=== PATIENT | male | born 1960 | race Two or more races ===

== ENCOUNTER 2023-05-10 13:55 | Emergency (ER) | payer OTHER ==
[~2023-05-10] VITALS: Ht 190.5 cm; Wt 129.5 kg
[2023-05-10 16:22] VITALS: BP 168/83; PULSE 83; RESP 16; TEMP 98.4; O2SAT 96
[2023-05-10] MEDS ORDERED: TETRACAINE HCL 0.5% OPTH(EYE) SOLN 4ML LEFTEYE ONE (16:30)
[2023-05-10] MEDS ORDERED: FLUORESCEIN SOD OPTH TEST STRIP LEFTEYE ONE (16:30)
[2023-05-10] MEDS ORDERED: ERY05OO OP (17:13)
== END 2023-05-10 17:45 | disposition home or self-care (01) ==
LOC: ER 13:55
DX: S05.01XA Injury of conjunctiva and corneal abrasion without foreign body, right eye, initial encounter (principal); W22.8XXA Striking against or struck by other objects, initial encounter; Y93.89 Activity, other specified; Y92.89 Other specified places as the place of occurrence of the external cause; Y99.8 Other external cause status

== ENCOUNTER 2024-11-12 09:28 | Emergency (ER) | payer OTHER ==
[~2024-11-12] VITALS: Ht 190.5 cm; Wt 130.9 kg
[~2024-11-12 09:28] MED LIST: ERY05OO OP
--- NOTE | 2024-11-12 10:00 | ED.PDOC ---
HPI Comments 52-year-old male presents for a laceration to the right hand located to the 3rd distal phalanx. Onset occurred 45 minutes ago. Patient reports he was putting a pin into a dry kiln loader and it popped out and cut him. Bleeding controlled at this time. Denies any numbness tingling to the affected extremity. Not taking blood thinners. Last tetanus shot was unknown. Denies numbness tingling or restrictions to ROM Chief Complaint: Laceration Time Seen by MD: 09:53 Primary Care Provider: Babatunde Reviewed Notes: Nurses Notes, Medications, Allergies Allergies: Coded Allergies: NO KNOWN ALLERGIES (Unverified , 05/10/23) Home Meds Active Scripts Acetaminophen (Acetaminophen) 500 Mg Tab, 500 MG PO Q6HP PRN for 7 Days, #28 TAB 0 Refills Prov:NICA MCKEON EMAIL PRODUCER 11/12/24 Cephalexin Monohydrate (Cephalexin) 500 Mg Cap, 1 CAP PO QID for 7 Days, #28 CAP 0 Refills Prov:NICA MCKEON EMAIL PRODUCER 11/12/24 Erythromycin (Erythromycin) 5 Mg/Gm Oin, 1 APPLIC OP QID for 5 Days, #5 GRAMS 0 Refills Prov:NICA MCKEON EMAIL PRODUCER 05/10/23 Information Source: Patient Mode of Arrival: Ambulatory Complexity: Intermediate Timing: Hours Laceration Location: Digit #3 Mechanism: Metal Last Tetanus: Unknown Laceration Length (cm): 3 Skin Type: Jagged Depth of Injury: Skin Tendon Injury: 0% Capillary Refill: < 3 seconds Tender: Mild Discharge: None Erythema: Localized to Wound Edges Past Medical History PAST MEDICAL HISTORY: Denies Surgical History: Denies all surgeries Family History Family History: Reviewed,noncontributory to illness Social History Smoker: Non-Smoker Alcohol: Denies ETOH Use Drugs: Denies Drug Use All Other Systems: Reviewed and Negative (per hpi) Physical Exam General Appearance: No Apparent Distress, Normal HEENT: Normal ENT Inspection, Pharynx Normal, TMs Normal Neck: Full Range of Motion, Non-Tender, Normal, Normal Inspection Respiratory: Chest Non-Tender, Lungs Clear, No Accessory Muscle Use, No Respiratory Distress, Normal Breath Sounds Cardiovascular: No Edema, No JVD, No Murmur, No Gallop, Normal Peripheral Pulses, Regular Rate/Rhythm Breast Exam: Deferred Gastrointestinal: No Organomegaly, Non Tender, No Pulsatile Mass, Normal Bowel Sounds, Soft Genitalia: Deferred Pelvic: Deferred Rectal: Deferred Extremities: No calf tenderness, Normal capillary refill, Normal inspection, Normal range of motion, Non-tender, No pedal edema Musculoskeletal : Apperance: Normal Neurologic: Alert, chemistry laboratory technician II-XII nml as Tested, No Motor Deficits, Normal Affect, Normal Mood, No Sensory Deficits Cerebellar Function: Normal Reflexes: Normal Skin: Dry, Normal Color, Warm Lymphatic: No Adenopathy Was a procedure done? Was a procedure done?: Yes Sedation Sedation?: No Laceration Repair : Location right hand Length 3 Anesthetic: Nothing Laceration Repair Prep: Saline, Betadine Laceration Repair Wound Comple: epidermis/dermis repair Laceration Repair: Size, Simple, Bacitracin, Non-adherent gauze, Gauze Informed consent obtained: Yes Risks, benefits, and alternati: Yes Differential diagnosis Generic Laceration: Tendon Injury, Abrasion/Contusion, Laceration, Avulsion X-Ray, Labs, Meds, VS Vital Signs Date Time Temp Pulse Resp B/P (MAP) Pulse Ox O2 Delivery O2 Flow Rate FiO2 11/12/24 10:51 98.4 84 16 184/88 (120) 96 98.4 11/12/24 10:51 84 16 96 Room Air 11/12/24 09:51 98.4 84 16 167/91 (116) 96 Current Medications Medications (Trade) Dose Ordered Sig/Tanya Route Start Time Stop Time Status Last Admin Diphtheria/ Tetanus/Acell Pertussis (Boostrix T-Dap) 0.5 ml ONCE ONCE IM 11/12/24 11:30 11/12/24 11:37 DC 11/12/24 11:45 Neomycin/ Polymyxin/ Bacitracin (Neosporin Topical) 1 applic BID TOP 11/12/24 22:00 11/12/24 12:24 DC 11/12/24 12:18 X-Ray, Labs, Meds, VS Comment The skin edges of the laceration were infiltrated with 1% lidocaine The skin surrounding the laceration was scrubbed with Betadine soaked sterile g auze The laceration was irrigated under high-pressure with a 60 mL syringe A total of 1L sterile water was used. Including diluted Betadine solution The laceration was prepped in sterile fashion with sterile drapes On examination under direct light, there was no foreign body seen The laceration was repaired in simple interrupted technique There was no continuing bleeding on repair. There were no complications related to repair Antibiotics were prescribed and tetanus was updated Education and follow-up instructions provided Wound check in 2 days Return sooner for signs of infection such as fevers, increased pain, redness, green, yellow discharge, or any concerns Keep wound dry for 24 to 48 hours; dry dressing may be changed Protect from sunlight and keep area clean and dry. Use soap and water if it gets dirty High risk of possible scarring and education provided on ways to minimize scarring after wound heals Also provided education on possible complications post procedure including wound dehiscence, infection, etc. Time of 1ST Reevaluation: 11:45 Reevaluation 1ST: Improved Patient Education/Counseling: Diagnosis, Treatment Family Education/Counseling: Diagnosis, Treatment Departure 1 Departure Time of Disposition: 11:58 Impression: Primary Impression: Finger laceration Qualified Codes: S61.212A - Laceration without foreign body of right middle finger without damage to nail, initial encounter Disposition: HOME / SELF CARE / HOMELESS Condition: Fair e-Prescriptions Acetaminophen (Acetaminophen) 500 Mg Tab 500 MG PO Q6HP PRN for 7 Days, #28 TAB 0 Refills Prov: NICA MCKEON NP 11/12/24 Cephalexin Monohydrate (Cephalexin) 500 Mg Cap 1 CAP PO QID for 7 Days, #28 CAP 0 Refills Prov: NICA MCKEON NP 11/12/24 Critical Care Note Critical Care Time?: No Stability Stability form required: No Heart Score Heart Score: Heart Score Response (Comments) Value History N/A 0 EKG N/A 0 Age N/A 0 Risk Factors N/A 0 Troponin N/A 0 Total 0 NICA MCKEON NP Nov 12, 2024 10:00
[2024-11-12 10:51] VITALS: BP 184/88; PULSE 84; RESP 16; TEMP 98.4; O2SAT 96
[2024-11-12] MEDS: TETANUS-DIPTH-ACEL PERTUSSIS 0.5ML SYR Tdap IM ONE (11:45)
[2024-11-12] MEDS ORDERED: CEPH500C PO (11:59)
[2024-11-12] MEDS ORDERED: ACET500T58 PO (11:59)
[2024-11-12] MEDS: NEOMYCIN-BACITRACIN-POLYM 15GM TOP OINT TOP SCH (12:18)
== END 2024-11-12 12:24 | disposition home or self-care (01) ==
LOC: ER 09:28
DX: S61.212A Laceration without foreign body of right middle finger without damage to nail, initial encounter (principal); Z79.899 Other long term (current) drug therapy; W26.8XXA Contact with other sharp object(s), not elsewhere classified, initial encounter; Y93.89 Activity, other specified; Y92.89 Other specified places as the place of occurrence of the external cause; Y99.8 Other external cause status
CPT/HCPCS: 12002; 29130; 90471; 90715; 99283; J2003

== ENCOUNTER 2024-11-19 12:35 | Emergency (ER) | payer OTHER ==
[~2024-11-19] VITALS: Ht 190.5 cm; Wt 128.1 kg
[~2024-11-19 12:35] MED LIST changes: +ACET500T58 PO; +CEPH500C PO
[2024-11-19 13:31] VITALS: BP 140/83; PULSE 88; RESP 16; TEMP 98.5; O2SAT 95
--- NOTE | 2024-11-19 14:11 | ED.PDOC ---
HPI Comments suture removal Chief Complaint: Suture Removal Time Seen by MD: 12:55 Primary Care Provider: janny Reviewed Notes: Nurses Notes, Medications, Allergies Allergies: Coded Allergies: NO KNOWN ALLERGIES (Unverified , 05/10/23) Home Meds Active Scripts Acetaminophen (Acetaminophen) 500 Mg Tab, 500 MG PO Q6HP PRN for 7 Days, #28 TAB 0 Refills Prov:NCIA MCKEON FIELD RECRUITER 11/12/24 Cephalexin Monohydrate (Cephalexin) 500 Mg Cap, 1 CAP PO QID for 7 Days, #28 CAP 0 Refills Prov:NICA MCKEON FIELD RECRUITER 11/12/24 Erythromycin (Erythromycin) 5 Mg/Gm Oin, 1 APPLIC OP QID for 5 Days, #5 GRAMS 0 Refills Prov:NICA MCKEON FIELD RECRUITER 05/10/23 Information Source: Patient Mode of Arrival: Ambulatory Complexity: Simple Laceration Length (cm): 2 Past Medical History PAST MEDICAL HISTORY: Denies Surgical History: Denies all surgeries Family History Family History: Reviewed,noncontributory to illness Social History Smoker: Non-Smoker Alcohol: Denies ETOH Use Drugs: Denies Drug Use All Other Systems: Reviewed and Negative (per hpi) Physical Exam General Appearance: No Apparent Distress, Normal HEENT: Normal ENT Inspection, Pharynx Normal, TMs Normal Neck: Full Range of Motion, Non-Tender, Normal, Normal Inspection Respiratory: Chest Non-Tender, Lungs Clear, No Accessory Muscle Use, No Respiratory Distress, Normal Breath Sounds Cardiovascular: No Edema, No JVD, No Murmur, No Gallop, Normal Peripheral Pulses, Regular Rate/Rhythm Breast Exam: Deferred Gastrointestinal: No Organomegaly, Non Tender, No Pulsatile Mass, Normal Bowel Sounds, Soft Genitalia: Deferred Pelvic: Deferred Rectal: Deferred Extremities: No calf tenderness, Normal capillary refill, Normal inspection, Normal range of motion, Non-tender, No pedal edema Musculoskeletal : Apperance: Normal Neurologic: Alert, field care manager II-XII nml as Tested, No Motor Deficits, Normal Affect, Normal Mood, No Sensory Deficits Cerebellar Function: Normal Reflexes: Normal Skin: Dry, Normal Color, Warm Lymphatic: No Adenopathy Was a procedure done? Was a procedure done?: No Differential diagnosis Generic Laceration: Other X-Ray, Labs, Meds, VS Vital Signs Date Time Temp Pulse Resp B/P (MAP) Pulse Ox O2 Delivery O2 Flow Rate FiO2 11/19/24 13:31 88 16 95 Room Air 11/19/24 13:31 98.5 88 16 140/83 (102) 95 98.5 11/19/24 12:48 98.5 88 16 140/83 (102) 95 X-Ray, Labs, Meds, VS Comment Alcohol swab used to clean area thoroughly. Used sterile suture removal kit Clean, dry, intact. No discharge seen. Education provided to keep area clean and dry. If gets soiled, use soap and water to clean. Watch out for signs and symptoms of infection including fever, chills, yellow or green discharge, increased pain, swelling etc. Time of 1ST Reevaluation: 14:00 Reevaluation 1ST: Improved Patient Education/Counseling: Diagnosis, Treatment Family Education/Counseling: Diagnosis, Treatment Departure 1 Departure Time of Disposition: 14:11 Impression: Primary Impression: Visit for suture removal Disposition: 01 HOME / SELF CARE / HOMELESS Condition: Stable Critical Care Note Critical Care Time?: No Stability Stability form required: No Heart Score Heart Score: Heart Score Response (Comments) Value History N/A 0 EKG N/A 0 Age N/A 0 Risk Factors N/A 0 Troponin N/A 0 Total 0 NICA MCKEON NP Nov 19, 2024 14:11
== END 2024-11-19 14:13 | disposition home or self-care (01) ==
LOC: ER 12:35
DX: S61.212D Laceration without foreign body of right middle finger without damage to nail, subsequent encounter (principal); Z48.02 Encounter for removal of sutures; Z79.899 Other long term (current) drug therapy; X58.XXXD Exposure to other specified factors, subsequent encounter